=== PATIENT | female | born 1970 | race Caucasian/White ===

== ENCOUNTER 2017-01-06 14:34 | Outpatient (CLI) | payer OTHER | END 2017-01-06 14:35 | disposition home or self-care (01) | DX: S66.11 Strain of flexor muscle, fascia and tendon of other and unspecified finger at wrist and hand level (principal) ==

== ENCOUNTER 2017-03-27 16:09 | Outpatient (CLI) | payer OTHER ==
[2017-03-27 18:19] LABS: BASOPHILS % (AUTO) 0.7 %; EOSINOPHILS # (AUTO) 0.1 10^3/uL (0.0-0.7); EOSINOPHILS % (AUTO) 1.2 %; HCT - HEMATOCRIT 44.4 % (37.0-47.0); HGB - HEMOGLOBIN 14.9 g/dL (12.0-16.0); LYMPHOCYTES # (AUTO) 1.6 10^3/uL (1.5-3.5); MEAN CORPUSCULAR HEMOGLOBIN 32.5 pg (27.0-31.0); MEAN CORPUSCULAR HGB CONC 33.5 g/dL (32.0-36.0); MEAN CORPUSCULAR VOLUME 97.1 fL (81.0-99.0); MEAN PLATELET VOLUME 10.1 fL (7.9-10.8); MONOCYTES # (AUTO) 0.8 10^3/uL (0.0-1.0); MONOCYTES % (AUTO) 11.8 %; NEUTROPHILS # (AUTO) 4.2 10^3/uL (1.5-6.6); NEUTROPHILS % (AUTO) 62.3 %; NUCLEATED RED BLOOD CELLS AUTO 0.1 /100WBC; RED BLOOD COUNT 4.57 10^6/uL (4.20-5.40); RED CELL DISTRIBUTION WIDTH 14.1 % (12.0-15.0); UNCORRECTED WHITE BLOOD COUNT 6.7 x10^3/uL; WHITE BLOOD COUNT 6.7 x10^3/uL (4.8-10.8)
[2017-03-27 18:32] LABS: BILIRUBIN,TOTAL 0.7 mg/dL (0.2-1.0); BUN - BLOOD UREA NITROGEN 11 mg/dL (6-20); CALCIUM 9.1 mg/dL (8.5-10.3); CARBON DIOXIDE - CO2 26 mmol/L (21-32); CHLORIDE 104 mmol/L (101-111); CREATININE 0.6 mg/dL (0.4-1.0); GFR - MDRD 108 (>89); GLUCOSE 95 mg/dL (70-100); POTASSIUM 3.9 mmol/L (3.5-5.0); SODIUM 138 mmol/L (135-145); TOTAL PROTEIN 7.3 g/dL (6.7-8.2); URIC ACID 5.5 mg/dL (2.6-7.2)
[2017-03-30 13:33] LABS: ANA SCREEN POSITIVE (NEGATIVE)
== END 2017-03-27 16:10 | disposition home or self-care (01) ==
LOC: LAB.F 16:09
PROVIDERS: ATTEND Physician Assistant Medical
DX: M25.531 Pain in right wrist (principal); S66.11 Strain of flexor muscle, fascia and tendon of other and unspecified finger at wrist and hand level; L03.116 Cellulitis of left lower limb
CPT/HCPCS: 36415; 80053; 84550; 85025; 85651; 86038; 86140; 86200; 86430

== ENCOUNTER 2017-12-04 08:50 | Outpatient (CLI) | payer OTHER | END 2017-12-04 08:51 | disposition critical access hospital (66) | LOC: EMS 08:50 | PROVIDERS: ATTEND Surgery | DX: R04.0 Epistaxis (principal) | CPT/HCPCS: A0425; A0429 ==

== ENCOUNTER 2017-12-04 09:24 | Emergency (ER) | payer OTHER ==
[2017-12-04] MEDS ORDERED: LIDOCAINE 1%-EPI 1:100000 20 ML MDV SUBQ STA (09:46)
[2017-12-04 11:37] LABS: BASOPHILS % (AUTO) 0.2 %; EOSINOPHILS % (AUTO) 0.4 %; HGB - HEMOGLOBIN 13.1 g/dL (12.0-16.0); LYMPHOCYTES % (AUTO) 23.8 %; MEAN CORPUSCULAR HEMOGLOBIN 31.8 pg (27.0-31.0); MEAN CORPUSCULAR HGB CONC 34.4 g/dL (32.0-36.0); MEAN CORPUSCULAR VOLUME 92.7 fL (81.0-99.0); MEAN PLATELET VOLUME 9.2 fL (7.9-10.8); MONOCYTES # (AUTO) 0.5 10^3/uL (0.0-1.0); MONOCYTES % (AUTO) 10.6 %; NEUTROPHILS # (AUTO) 2.8 10^3/uL (1.5-6.6); PLT - PLATELET COUNT 75 10^3/uL (130-450); RED BLOOD COUNT 4.11 10^6/uL (4.20-5.40); RED CELL DISTRIBUTION WIDTH 13.4 % (12.0-15.0); WHITE BLOOD COUNT 4.4 x10^3/uL (4.8-10.8)
[2017-12-04 11:40] VITALS: BP 133/98
--- NOTE | 2017-12-04 11:59 | ED Physician Documentation ---
PD HPI HEENT - Stated complaint Stated Complaint: BLOOD IN THROAT SP EPISTAXIS - Chief complaint Chief Complaint: Heent - History obtained from History obtained from: Patient - History of Present Illness Timing - onset: How many hours ago (1.5) Timing - details: Still present Location: Nose - Additional information Additional information: the patient is a 47-year-old female who presents with nosebleed that started about 1.5 hours prior to arrival. There was no injury. The patient reports having upper respiratory symptoms for the past 2 days, with runny nose. Her nose started bleeding spontaneously this morning. She has history of hypertension and history of autoimmune thrombocytopenia. She takes a baby aspirin daily. She reports similar episode of epistaxis about 2 months ago, but that time it stopped spontaneously. Review of Systems Constitutional: denies: Fever Ears: denies: Ear pain, Tinnitus/ringing Nose: reports: Epistaxis Throat: denies: Sore throat Cardiac: denies: Chest pain / pressure Respiratory: denies: Dyspnea, Cough GI: denies: Abdominal Pain, Nausea, Vomiting Neurologic: denies: Syncope, Headache PD PAST MEDICAL HISTORY - Past Medical History Cardiovascular: Hypertension Endocrine/Autoimmune: None Other Past Medical History: Autoimmune thrombocytopenia. - Past Surgical History Past Surgical History: No - Present Medications Home Medications: Ambulatory Orders Medication Instructions Recorded Confirmed HYDROcod/ACETAM 5/325 [[place] 5/325] 1 - 2 ea PO Q6H PRN #15 tablet 12/10/15 Aspirin 1 tab PO DAILY 12/04/17 12/04/17 cephALEXin [Cephalexin] 500 mg PO TID #15 tablet 12/04/17 - Allergies Allergies/Adverse Reactions: Allergies Allergy/AdvReac Type Severity Reaction Status Date / Time No Known Drug Allergies Allergy Verified 12/04/17 09:36 - Social History Does the pt smoke?: No Smoking Status: Never smoker Does the pt drink ETOH?: Yes Does the pt have substance abuse?: No - Immunizations Immunizations are current?: Yes - POLST Patient has POLST: No PD ED PE NORMAL - Vitals Vital signs reviewed: Yes (Borderline hypertensive initially.) - General General: Alert and oriented X 3, Well developed/nourished, Other (Emotionally distraught, holding a washcloth to her bleeding nose.) - HEENT HEENT: Atraumatic, Other (Left anterior epistaxis, with bleeding site identified at the nasal septum.) - Neck Neck: No adenopathy - Cardiac Cardiac: RRR - Respiratory Respiratory: No respiratory distress - Derm Derm: No rash - Neuro Neuro: Alert and oriented X 3, No motor deficit, Normal speech Results - Vitals Vitals: Oxygen O2 Source Room air - Labs Labs: Laboratory Tests 12/04/17 11:29 WBC 4.4 L RBC 4.11 L Hgb 13.1 Hct 38.1 MCV 92.7 MCH 31.8 H MCHC 34.4 RDW 13.4 Plt Count 75 L MPV 9.2 Neut # 2.8 Lymph # 1.0 L Sutton # 0.5 Eos # 0.0 Baso # 0.0 Absolute Nucleated RBC 0.00 Nucleated RBC % 0.0 Procedures - Epistaxis Preparation: Lidocaine, Clamp / pressure applied Treatment: Silver Nitrate, Anterior rhinorocket Other: Observed - no bleeding, Pt tolerated well, O2 sat WNL, Antibiotics prescribed PD MEDICAL DECISION MAKING - ED course Complexity details: reviewed results, re-evaluated patient, considered differential, d/w patient, d/w family ED course: The patient's presentation is significant for left anterior epistaxis. The bleeding was controlled after a cotton swab soaked in lidocaine with epinephrine was inserted in the left anterior nare. Silver nitrate cautery was performed, and Merocel sponge packing was inserted. The patient was observed for an additional half hour during which time there was not recurrence of bleeding. Because of her history of thrombocytopenia, a CBC was performed, and it reveals a low platelet count of 75,000. Hemoglobin and hematocrit are normal. She is being discharged with prescription for cephalexin. I discussed with her and her timing for removal of the nasal packing, as well as potentially worrisome signs or symptoms that should prompt reevaluation in the emergency department. Departure - Departure Disposition: 01 Home, Self Care Clinical Impression: Anterior epistaxis, Thrombocytopenia Condition: Stable Instructions: ED Nosebleed Follow-Up: Shirley Mcelroy PA-C [Primary Care Provider] - Prescriptions: cephALEXin [Cephalexin] 500 mg PO TID #15 tablet Comments: Leave the nasal packing in place for 3 days. Follow up with your primary physician in 3 days for removal of the packing. Take cephalexin 3 times daily as prescribed, as long as the packing is in place. Return to the emergency department if you develop recurrent bleeding that does not stop with 15-20 minutes of pressure applied to the side of the nose. Discharge Date/Time: 12/04/17 12:19
== END 2017-12-04 12:19 | disposition home or self-care (01) ==
LOC: EDUNIT# → ED 09:24
DX: R04.0 Epistaxis (principal); D69.6 Thrombocytopenia, unspecified; I10 Essential (primary) hypertension; Z79.82 Long term (current) use of aspirin
CPT/HCPCS: 30903; 36415; 85025; 99283

== ENCOUNTER 2018-10-23 20:18 | Outpatient (CLI) | payer OTHER | END 2018-10-23 20:19 | disposition EMS.NT | LOC: EMS 20:18 | PROVIDERS: ATTEND Surgery | DX: S09.90XA Unspecified injury of head, initial encounter (principal); Y04.2XXA Assault by strike against or bumped into by another person, initial encounter ==

== ENCOUNTER 2020-03-05 10:29 | Emergency (ER) | payer MEDICAID, OTHER ==
--- NOTE | 2020-03-05 11:33 | ED Physician Documentation ---
PD HPI URI - Stated complaint Stated Complaint: FEVER/CONGESTION - Chief complaint Chief Complaint: Fever - History obtained from History obtained from: Patient - History of Present Illness Timing - onset: Yesterday Timing duration: Days (1) Timing details: Gradual onset, Still present Associated symptoms: Fever, Chills, Nasal congestion, Rhinorrhea, Sore throat, Dry cough, Dyspnea Contributing factors: No: Sick contact Improves by: Rest, Medication Worsened by: Activity Similar symptoms before: Diagnosis (pneumonia) Recently seen: Not recently seen - Additional information Additional information: 49-year-old female has developed a fever cough and congestion over the past 24 hours. She has muscle aches and pains and has muffled hearing out of the right ear. She has a mild sore throat she feels like she could use an inhaler. She has had pneumonia previously and at that time had to use an inhaler. Review of Systems Constitutional: reports: Fever, Chills, Myalgias, Fatigue Eyes: denies: Decreased vision Ears: reports: Loss of hearing. denies: Ear pain Nose: reports: Rhinorrhea / runny nose, Congestion Throat: reports: Sore throat Cardiac: denies: Chest pain / pressure, Palpitations Respiratory: reports: Dyspnea, Cough GI: denies: Abdominal Pain, Nausea, Vomiting PD PAST MEDICAL HISTORY - Past Medical History Cardiovascular: Hypertension Endocrine/Autoimmune: None - Past Surgical History Past Surgical History: No - Present Medications Home Medications: Ambulatory Orders Medication Instructions Recorded Confirmed Albuterol Sulf [Ventolin Hfa 1 - 2 puffs INH Q4HR PRN #1 inhaler 03/05/20 Inhaler] Amox/Clav 875/125 [Augmentin] 1 each PO Q12H #20 tablet 03/05/20 - Allergies Allergies/Adverse Reactions: Allergies Allergy/AdvReac Type Severity Reaction Status Date / Time No Known Drug Allergies Allergy Verified 03/05/20 10:49 - Social History Does the pt smoke?: No Smoking Status: Never smoker Does the pt drink ETOH?: Yes Does the pt have substance abuse?: No - Immunizations Immunizations are current?: Yes - POLST Patient has POLST: No PD ED PE NORMAL - Vitals Vital signs reviewed: Yes (febrile, tachy and hypertensive) - General General: No acute distress, Well developed/nourished - HEENT HEENT: Atraumatic, PERRL, EOMI, Other (erythema to the right TM with distortion of the landmarks. The left is clear. dry mucous membranes with pharyngeal erythema. ) - Neck Neck: Supple, no meningeal sign, No bony TTP - Cardiac Cardiac: No murmur, Other (tachy to 100) - Respiratory Respiratory: No respiratory distress, Other (mild exp wheezes) - Abdomen Abdomen: Soft, Non tender - Back Back: No CVA TTP, No spinal TTP - Derm Derm: Normal color, Warm and dry, No rash - Extremities Extremities: No deformity, No edema, No calf tenderness / cord - Neuro Neuro: Alert and oriented X 3, social work program coordinator 2-12 intact, No motor deficit, No sensory deficit, Normal speech Eye Opening: Spontaneous Motor: Obeys Commands Verbal: Oriented GCS Score: 15 - Psych Psych: Normal mood, Normal affect Results - Vitals Vitals: Vital Signs - 24 hr 03/05/20 03/05/20 10:35 10:49 Temperature 38.6 C H Heart Rate 106 H 110 H Respiratory 20 16 Rate Blood Pressure 132/84 H 120/68 O2 Saturation 95 96 Oxygen O2 Source Room air - Rads (name of study) chest Radiology: Prelim report reviewed (Impression: Normal single view chest.), EMP read indepedently, See rad report PD MEDICAL DECISION MAKING - ED course Complexity details: considered differential, d/w patient ED course: 49-year-old female with a cough fever and muffled hearing has otitis on exam she does have some faint wheezing on her chest exam as well. She is febrile in the coronavirus outbreak and a cold with sample is obtained a chest x-ray is obtained there is no obvious infiltrate. The patient is administered dexamethas one 10 mg orally and we will place her on some Augmentin. Departure - Departure Disposition: 01 Home, Self Care Clinical Impression: Otitis media Qualifiers: Otitis media type: suppurative Chronicity: acute Laterality: right Recurrence: non-recurrent Spontaneous tympanic membrane rupture: without spontaneous rupture Qualified Code(s): H66.001 - Acute suppurative otitis media without spontaneous rupture of ear drum, right ear Condition: Stable Instructions: ED Otitis Media Acute Adult Follow-Up: Your, doctor [Other] Prescriptions: Albuterol Sulf [Ventolin Hfa Inhaler] 1 - 2 puffs INH Q4HR PRN #1 inhaler PRN Reason: Shortness Of Air/Wheezing Amox/Clav 875/125 [Augmentin] 1 each PO Q12H #20 tablet
[2020-03-05] MEDS: CHERRY SYRUP 10 ML UDC PO ONE (11:50)
[2020-03-05] MEDS: DEXAMETHASONE 10 MG/ML VIAL PO STA (11:50)
--- NOTE | 2020-03-05 12:20 | XRAY Report ---
Reason: chest pain Procedure Date: 03/05/2020 Accession Number: [id number] / [id number] Procedure: XR - Chest 1 View X-Ray CPT Code: 90742 Final Report FULL RESULT: EXAM: CHEST RADIOGRAPHY EXAM DATE: 03/05/2020 11:19 AM. CLINICAL HISTORY: Chest pain. COMPARISON: None. TECHNIQUE: 1 view. FINDINGS: Lungs/Pleura: No focal opacities evident. No pleural effusion. No pneumothorax. Mediastinum: Within exam limitations, the cardiomediastinal contour is normal. Other: None. IMPRESSION: Normal single view chest. RADIA
[2020-03-05 12:48] VITALS: BP 110/74
== END 2020-03-05 13:00 | disposition home or self-care (01) ==
LOC: ED 10:29
DX: H66.001 Acute suppurative otitis media without spontaneous rupture of ear drum, right ear (principal); I10 Essential (primary) hypertension
CPT/HCPCS: 71045; 87635; 99284; A9270; 81599

== ENCOUNTER 2023-02-23 08:00 | Outpatient (CLI) | payer MEDICAID | END 2023-02-23 23:59 | disposition home or self-care (01) | LOC: LAB 08:00 | PROVIDERS: ATTEND Physician Assistant | DX: L03.90 Cellulitis, unspecified (principal) | CPT/HCPCS: 87070; 87181; 87205 ==

== ENCOUNTER 2023-08-18 14:24 | Outpatient (CLI) | payer OTHER, MEDICAID | END 2023-08-18 14:25 | disposition critical access hospital (66) | LOC: EMS 14:24 | DX: S40.212A Abrasion of left shoulder, initial encounter (principal); M25.552 Pain in left hip; V57.5XXA Driver of pick-up truck or van injured in collision with fixed or stationary object in traffic accident, initial encounter; Y92.414 Local residential or business street as the place of occurrence of the external cause | CPT/HCPCS: A0425; A0429 ==

== ENCOUNTER 2023-08-18 14:34 | Emergency (ER) | payer MEDICAID ==
[2023-08-18 15:00] VITALS: BP 134/94; O2SAT 95
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
[2023-08-18] MEDS: HYDROmorphone 1 MG/ML CARPUJECT IVP STA ×2 (15:32→18:02)
[2023-08-18] MEDS: SODIUM CHLORIDE 0.9% 1,000 ML IV STA (15:33)
[2023-08-18 15:41] LABS: BASOPHILS % (AUTO) 0.6 %; EOSINOPHILS # (AUTO) 0.1 10^3/uL (0.0-0.7); EOSINOPHILS % (AUTO) 1.2 %; LYMPHOCYTES # (AUTO) 0.6 10^3/uL (1.5-3.5); LYMPHOCYTES % (AUTO) 12.8 %; MEAN CORPUSCULAR HEMOGLOBIN 29.1 pg (27.0-31.0); MEAN CORPUSCULAR HGB CONC 31.7 g/dL (32.0-36.0); MEAN CORPUSCULAR VOLUME 91.7 fL (81.0-99.0); MEAN PLATELET VOLUME 10.9 fL (7.9-10.8); MONOCYTES # (AUTO) 0.3 10^3/uL (0.0-1.0); MONOCYTES % (AUTO) 6.2 %; NEUTROPHILS # (AUTO) 3.9 10^3/uL (1.5-6.6); NEUTROPHILS % (AUTO) 77.8 %; PLT - PLATELET COUNT 97 10^3/uL (130-450); RED BLOOD COUNT 4.47 10^6/uL (4.20-5.40); RED CELL DISTRIBUTION WIDTH 13.7 % (12.0-15.0)
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
[2023-08-18 16:15] LABS: ALBUMIN 3.9 g/dL (3.2-5.5); ALBUMIN/GLOBULIN RATIO 1.2 (1.0-2.2); BILIRUBIN,TOTAL 0.6 mg/dL (0.2-1.0); CALCIUM 9.2 mg/dL (8.5-10.3); CREATININE 0.6 mg/dL (0.6-1.3); TOTAL PROTEIN 7.1 g/dL (6.4-8.9)
[2023-08-18 16:38] LABS: HCG,QUALITATIVE BLOOD NEGATIVE
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
[2023-08-18] MEDS: KETOROLAC 30 MG/ML VIAL IVP STA (18:01)
[2023-08-18] MEDS: iohexoL-300 100 ML VIAL IVP ONE (18:25)
== END 2023-08-18 18:35 | disposition home or self-care (01) ==
LOC: EDUNIT# → ED 14:34
DX: S42.022A Displaced fracture of shaft of left clavicle, initial encounter for closed fracture (principal); V89.2XXA Person injured in unspecified motor-vehicle accident, traffic, initial encounter; Y92.410 Unspecified street and highway as the place of occurrence of the external cause; I10 Essential (primary) hypertension; Z79.899 Other long term (current) drug therapy
CPT/HCPCS: 36415; 80053; 83690; 84703; 85025; 85610; 99284

== ENCOUNTER 2024-02-02 08:00 | Outpatient (CLI) | payer MEDICAID | END 2024-02-02 23:59 | disposition home or self-care (01) | LOC: LAB.N 08:00 | PROVIDERS: ATTEND Registered Nurse | DX: R30.0 Dysuria (principal) | CPT/HCPCS: 87077; 87086 ==

== ENCOUNTER 2024-03-25 08:00 | Outpatient (CLI) | payer MEDICAID ==
[2024-03-25 20:03] LABS: BILIRUBIN,URINE NEGATIVE (NEGATIVE); GLUCOSE, URINE (UA) NEGATIVE (NEGATIVE); KETONES,URINE (UA) NEGATIVE (NEGATIVE); LEUKOCYTE ESTERASE, URINE MODERATE (NEGATIVE); NITRITE,URINE NEGATIVE (NEGATIVE); OCCULT BLOOD,URINE NEGATIVE (NEGATIVE); PH,URINE 6.5 PH (5.0-7.5); PROTEIN,URINE NEGATIVE (NEGATIVE); UROBILINOGEN,URINE 0.2 (NORMAL) E.U./dL (NORMAL)
[2024-03-25 20:23] LABS: BACTERIA,URINE Rare /HPF (None Seen); CLARITY,URINE HAZY (CLEAR); RBC,URINE 0-5 /HPF (0-5); SQUAMOUS EPITHELIAL CELL,UR FEW Squamous (<= Few); TRICHOMONAS,URINE PRESENT (None Seen)
== END 2024-03-25 23:59 | disposition home or self-care (01) ==
LOC: LAB.S 08:00
PROVIDERS: ATTEND Internal Medicine
DX: R30.0 Dysuria (principal)
CPT/HCPCS: 81001; 87086

== ENCOUNTER 2024-04-04 07:00 | Outpatient (CLI) | payer MEDICAID | END 2024-04-04 23:59 | disposition home or self-care (01) | LOC: LAB.S 07:00 | PROVIDERS: ATTEND Registered Nurse | DX: N39.0 Urinary tract infection, site not specified (principal) | CPT/HCPCS: 87077; 87086; 87181 ==